=== PATIENT | male | born 1970 | race Caucasian/White ===

== ENCOUNTER 2017-05-21 14:21 | Emergency (ER) | payer SELFPAY ==
[~2017-05-21] VITALS: Ht 175.3 cm; Wt 95.3 kg
[2017-05-21 14:37] LABS: POTASSIUM ISTAT 4.1 mmol/L (3.5-5.0)
--- NOTE | 2017-05-21 14:40 | PHYS DOC ---
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 Denies any headache blurry vision chest pain shortness of breath; mild nausea and vomiting no diarrhea. Denies any recent drug use or prescription sedative her pain med use.. Review of Systems Review of Systems Constitutional: Denies fever or chills [] Eyes: Denies change in visual acuity, redness, or eye pain [] HENT: Denies nasal congestion or sore throat [] Respiratory: Denies cough or shortness of breath [] Cardiovascular: No additional information not addressed in HPI [] GI: Denies abdominal pain, nausea, vomiting, bloody stools or diarrhea [] : Denies dysuria or hematuria [] Musculoskeletal: Denies back pain or joint pain [] Integument: Denies rash or skin lesions [] Neurologic: Denies headache, focal weakness or sensory changes [] Endocrine: Denies polyuria or polydipsia [] Current Medications Current Medications Current Medications Medications (Trade) Dose Ordered Sig/Pedro Start Time Stop Time Status Last Admin Dose Admin Sodium Chloride 1,000 ml @ 1,000 mls/hr 1X ONCE 05/21/17 14:45 05/21/17 15:44 DC 05/21/17 14:40 1,000 MLS/HR Allergies Allergies Allergies Coded Allergies Type Severity Reaction Last Updated Verified No Known Drug Allergies 05/21/17 No Physical Exam Physical Exam Constitutional: Well developed, well nourished, no acute distress, non-toxic appearance. [] HENT: Normocephalic, atraumatic, bilateral external ears normal, oropharynx moist, no oral exudates, nose normal. [] Eyes: PERRLA, EOMI, conjunctiva normal, no discharge. Pupils were equal but somewhat small 2 mm. [] Neck: Normal range of motion, no tenderness, supple, no stridor. [] Cardiovascular:Heart rate regular rhythm, no murmur [] Lungs & Thorax: Bilateral breath sounds clear to auscultation [] Abdomen: Bowel sounds normal, soft, no tenderness, no masses, no pulsatile masses. [] Skin: Warm, dry, no erythema, no rash. [] Back: No tenderness, no CVA tenderness. [] Extremities: No tenderness, no cyanosis, no clubbing, ROM intact, no edema. [] Neurologic: Alert and oriented X 3, normal motor function, normal sensory function, no focal deficits noted. Cranial nerves II through XII grossly intact. Patient was able to walk into the emergency department [] Psychologic: Affect normal, judgement normal, mood normal. [] Current Patient Data Vital Signs Vital Signs Date Time Temp Pulse Resp B/P (MAP) Pulse Ox O2 Delivery O2 Flow Rate FiO2 05/21/17 14:25 98.4 77 16 178/97 (124) 99 Room Air 98.4 Lab Values Laboratory Tests Test 05/21/17 14:25 05/21/17 14:35 Ethyl Alcohol Level < 10 mg/dL (0-10) POC Hemoglobin 14.6 g/dL (14-18) POC Hematocrit 43 % (37-52) POC Sodium 145 mmol/L (135-145) POC Potassium 4.1 mmol/L (3.5-5.0) POC Chloride 106 mmol/L (98-110) POC Total CO2 27 mmol/L (23-32) Anion Gap 18 mmol/L (6-14) H POC Blood Urea Nitrogen 23 mg/dL (8-26) POC Creatinine 1.1 mg/dL (0.5-1.4) Glucose Level 87 mg/dL (70-99) POC Ionized Calcium (Crystal) 1.17 mmol/L (1.13-1.32) Laboratory Tests 05/21/17 14:35 EKG EKG Normal sinus rhythm rate of 69 no STEMI no ischemic changes QTC normal my interpretation [] Radiology/Procedures Radiology/Procedures [] Course & Med Decision Making Course & Med Decision Making Pertinent Labs and Imaging studies reviewed. (See chart for details) [Reexamination at 4:13 PM patient feels improved taking by mouth he is awake alert feels much better and wants to go home.] Dragon Disclaimer Dragon Disclaimer This electronic medical record was generated, in whole or in part, using a voice recognition dictation system. Departure Departure Impression: Primary Impression: Heat exhaustion Additional Impression: Dehydration Condition: IMPROVED Patient Instructions: Heat Disorders-Brief Additional Instructions: Increase by mouth fluid intake and stay in air-conditioned quarters over the next 24 hours. Problem Qualifiers PAGE TORRES MD May 21, 2017 14:40
[2017-05-21] MEDS ORDERED: IV NORMAL SALINE 1000ML BAG 1,000 ML IV ONE (14:45)
[2017-05-21 16:22] LABS: BILIRUBIN,URINE NEGATIVE (NEG); GLUCOSE,URINE NEGATIVE (NEG); NITRITE,URINE NEGATIVE (NEG); PH,URINE 5.5; PROTEIN,URINE NEGATIVE (NEG-TRACE); UROBILINOGEN,URINE 0.2 mg/dL (0.2 mg/dL)
[2017-05-21 16:28] VITALS: BP 156/81
[2017-05-21 16:28] LABS: BARBITURATES NEG (NEG); BENZODIAZEPINES NEG (NEG); CANNABINOIDS POS (NEG); COCAINE NEG (NEG); METHADONE NEG (NEG); OPIATES POS (NEG); PHENCYCLIDINE NEG (NEG)
[2017-05-21 16:48] LABS: BACTERIA,URINE 0 /HPF (0-FEW); RBC,URINE 0 /HPF (0-2)
--- NOTE | 2017-05-22 06:21 | EKG ---
[facility] [address] [place] [address] Test Date: 2017-05-21 Test Time: 14:41:10 Pat Name: RICCO ESTEBAN Department: Room: Gender: M Staffing Recruiter: : 1970 Requested By: PAGE TORRES Order Number: [id number] Reading MD: Keyla Bahena Measurements Intervals [place] Rate: 69 P: 39 RI: 158 QRS: 24 QRSD: 104 T: 60 QT: 400 QTc: 435 Interpretive Statements SINUS RHYTHM INCOMPLETE RIGHT BUNDLE BRANCH BLOCK QRS(T) CONTOUR ABNORMALITY CONSISTENT WITH ANTEROSEPTAL INFARCT AGE UNDETERMINED ABNORMAL ECG RI6.01 No previous ECG available for comparison Electronically Signed On 05-24-2017 15:24:06 CDT by Keyla Bahena
== END 2017-05-21 16:20 | disposition home or self-care (01) ==
LOC: ER 14:21
DX: T67.5XXA Heat exhaustion, unspecified, initial encounter (principal); E86.0 Dehydration; F17.210 Nicotine dependence, cigarettes, uncomplicated; F19.10 Other psychoactive substance abuse, uncomplicated; F11.10 Opioid abuse, uncomplicated; F15.10 Other stimulant abuse, uncomplicated; X30.XXXA Exposure to excessive natural heat, initial encounter; Y93.89 Activity, other specified; Y92.89 Other specified places as the place of occurrence of the external cause; Y99.8 Other external cause status
CPT/HCPCS: 36415; 80047; 80305; 81001; 84484; 87086; 93005; 96360; 99285; G0480; J7030; 80320; G0481